=== PATIENT | male | born 1955 | race Caucasian/White ===

== ENCOUNTER 2024-01-28 12:48 | Outpatient (CLI) | payer OTHER, SELFPAY ==
--- NOTE | ~2024-01-28 | CT_ITS ---
EXAMINATION: CT diagnostic chest wo con DATE: 01/28/2024 14:44 INDICATION: R91.1 - Solitary pulmonary nodule TECHNIQUE: Computed tomography (CT) of the chest was performed without intravenous contrast. Addition al 3D reconstructions utilizing coronal maximum intensity projection (MIP) were performed. Automated exposure control and iterative reconstruction technique were employed. The dose-length product was 39 2.99 mGy-cm. COMPARISON: None FINDINGS: Multiple tiny calcified nodules in the right upper and lower lobes consistent with old granulomatous disease. There is a 2.9 x 1.8 x 1.2 cm subsolid nodule in the superior segment of the right lower lob e at the caudal margin of a linear band of discoid atelectasis. Additional minimal dependent atelecta sis in the bilateral lower lobes. No pulmonary edema or pleural effusion. Heart size is normal. Ather osclerotic coronary artery calcification. No pericardial effusion. Thoracic aorta is normal in calibe r. No pathologically enlarged thoracic lymphadenopathy. 3.4 cm exophytic cyst at the upper pole of th e left kidney. Dystrophic calcific lesion at the tail of the pancreas likely sequela of chronic pancr eatitis. Moderate thoracic and severe lower cervical spondylosis. IMPRESSION: 1. 2.9 x 1.8 x 1.2 cm some solid nodules in the superior segment of the right lower lobe which could be infectious, inflammatory or malignant in etiology. Recommend correlation with any outside CT imagi ng which could affect decision for biopsy versus follow-up. In the absence of prior imaging would rec ommend percutaneous biopsy preferably in 2-4 weeks to allow time for improvement in the setting of ei ther an inflammatory or infectious etiology in which case biopsy could be deferred for further follow -up. Reviewed, dictated and finalized at location A. IMPRESSION: 1. 2.9 x 1.8 x 1.2 cm some solid nodules in the superior segment of the right l ower lobe which could be infectious, inflammatory or malignant in etiology. Rec ommend correlation with any outside CT imaging which could affect decision for biopsy versus follow-up. In the absence of prior imaging would recommend percut aneous biopsy preferably in 2-4 weeks to allow time for improvement in the sett ing of either an inflammatory or infectious etiology in which case biopsy could be deferred for further follow-up.
== END 2024-01-28 12:49 | disposition home or self-care (01) ==
LOC: ANHIMG 12:59
PROVIDERS: PCP Family Medicine; Visit Provider Family Medicine
DX: R91.8 Other nonspecific abnormal finding of lung field (principal)
CPT/HCPCS: 71250

== ENCOUNTER 2024-02-13 08:38 | Outpatient (CLI) | payer MEDICARE, SELFPAY ==
--- NOTE | 2024-02-06 14:20 | PC.NURSE ---
Pre Radiology instructions Report to the outpatient [email or web address] on date 02/13/24 at time __0900 for procedure Time: _1100___ YOU MAY BE MONITORED AT HOSPITAL FOR UP TO 4 HOURS AFTER YOUR PROCEDURE. A visitor will be allowed to accompany the patient into the hospital. You and your visitor will be asked to self-screen and do not enter if you have any COVID symptoms. A mask is OPTIONAL within the hospital. Patients are to have no food or drink 6 hours prior to procedure time Driving will be restricted after the procedure, you must have a person to drive you home. Labs will be drawn in preop area and once reviewed, you will be taken to radiology area for procedure. When the procedure is completed, you will be taken to outpatient where you will be monitored for several hours. You may have one visitor in this area. Other than holding anti-coagulants, patient may take other medication(s) as scheduled. Prior to your appointment date patients are instructed to hold anti-coagulants after discussing with ordering provider to stop. If unable to discontinue anti-coagulants please notify radiologist. ? No aspirin or warfarin (Coumadin) for 7 days prior to the procedure. ? No clopidogrel (Plavix), ticagrelor (Brilinta), prasugrel (Effient) or dabigatran (Pradaxa) for 5 days prior to the procedure. ? No rivaroxaban (Xarelto), apixaban (Eliquis), dipyridamole (Aggrenox or Persantine) or cilostazol (Pletal) for 2 days prior to the procedure. Medications to discontinue per physician: _NONE Date to take last dose: Please leave all valuables, including medications, at home the day of procedure. The hospital will not accept responsibility for valuables. Wear comfortable, loose fitting clothing.? Follow any additional instructions given to you from ordering provider. Telephone instructions given to __WIFE and asked if any additional questions and then verbalized understanding. Patient advised to call scheduling provider office or registration scheduling [phone] if any additional questions.
[2024-02-06 14:36] VITALS: BMI 34.2
[2024-02-13] VITALS (11 sets, daily range): BP systolic 140–179; BP diastolic 81–100; PULSE 66–81; RESP 14–18; TEMP 37; O2SAT 97–100
--- NOTE | ~2024-02-13 | XR_ITS ---
EXAMINATION: XR chest 1V portable 02/13/2024 14:46 INDICATION: Post image guided lung biopsy. PROCEDURE: AP portable chest COMPARISON: 02/13/2024 FINDINGS: The lungs are clear. The cardiomediastinal silhouette is within normal limits. There are no pleural effusions. There is no pneumothorax suspected. IMPRESSION: 1: NO ACUTE CARDIOPULMONARY DISEASE. Reviewed, dictated and finalized at location B.
--- NOTE | ~2024-02-13 | XR_ITS ---
EXAMINATION: XR chest 1V DATE: 02/13/2024 11:44 INDICATION: Right lung nodule status post percutaneous biopsy. TECHNIQUE: A single frontal view of the chest was obtained. COMPARISON: None. FINDINGS: There is a nodule in right lower lobe. No pleural effusion or pneumothorax. The heart size is normal. IMPRESSION: 1. Nodule in right lung lower lobe, which is indeterminate for malignancy. Reviewed, dictated and finalized at location A.
--- NOTE | ~2024-02-13 | CT_ITS ---
EXAMINATION: CT biopsy lung w/imaging DATE: 02/13/2024 11:44 INDICATION: Solitary pulmonary nodule. TECHNIQUE: The procedure including the risks, benefits, and alternatives and possibility of chest tub e placement were discussed with the patient. Risks discussed included infection, hemorrhage, approxim ately 1/3 risk of pneumothorax, approximately 1/10 risk of pneumothorax severe enough to warrant ches t tube placement, and rarely . The patient understood the risks and agreed to proceed. The patie nt was placed prone. The skin overlying the right lung lower lobe was prepped and draped in sterile fashion. Anesthetic was administered with 1% lidocaine subcutaneously. A 19 gauge outer needle was advanced under CT guidance to the lesion of interest. A 20 gauge core biopsy needle was then used to obtain 3 core biopsy specimens. The needle was removed and the entry site was cleaned and dressed. Th e mA was adjusted according to patient size. Iterative reconstruction technique was employed. The dos e-length product was 308.06 mGy-cm. There were no immediate complications. FINDINGS: CT images demonstrate the outer needle tip adjacent to a 3.0 x 1.5 cm part solid nodule in right lung lower lobe. IMPRESSION: 1. CT-guided core needle biopsy of a nodule in right lung lower lobe. Reviewed, dictated and finalized at location A.
--- NOTE | ~2024-02-13 | XR_ITS ---
EXAMINATION: XR chest 1V portable DATE: 02/13/2024 12:57 INDICATION: Right lung nodule status post previous biopsy. TECHNIQUE: A single frontal view of the chest was obtained on 2 radiographs. COMPARISON: Chest single view at 11:43 AM FINDINGS: There is no pneumonia, pleural effusion, or pneumothorax. The heart size is normal. IMPRESSION: 1. No acute cardiopulmonary disease. Reviewed, dictated and finalized at location A.
[2024-02-13 09:48] LABS: Prothrombin Time 13.7 Seconds (11.1-14.7)
[2024-02-13 09:54] LABS: Mean Platelet Volume 11.1 fl (7.4-10.4); Platelet Count Result 202 k/mm3 (150-375)
[2024-02-13] MEDS: ACETAMINOPHEN 500 MG TABLET 1000 MG PO (12:56)
--- NOTE | 2024-02-13 15:28 | SUR.PHASEII ---
Addendum entered by Samaria Yousif RN 02/13/24 15:29: 1445 Original Note: notified that diagnostic technologist at bedside to obtain final chest xray. also notified of BP elevated. No new orders at this time. Pt. ok to d/c per MD Camarena.
== END 2024-02-13 15:20 | disposition home or self-care (01) ==
PROVIDERS: PCP Family Medicine; Visit Provider Radiology Diagnostic Radiology
PROC: BB24ZZZ Computerized Tomography (CT Scan) of Bilateral Lungs (ICD-10-PCS; CPT 32408; principal; 2024-02-13 11:00)
DX: R91.1 Solitary pulmonary nodule (principal)
CPT/HCPCS: 32408; 36415; 71045; 85049; 85610; 88305; 88342; A9270